=== PATIENT | male | born 1950 | race Caucasian/White ===

== ENCOUNTER 2022-05-01 21:57 | Emergency (ER) | payer MEDICARE, BC ==
[~2022-05-01] VITALS: Ht 180.3 cm; Wt 88.5 kg
[~2022-05-01 21:57] MED LIST: AFRIN30 ML NAS; ASPIRIN EC81 MG PO; COQ1050 MG PO; FOLGARD TABLET1 EAC1 PO; MEDI PO
[2022-05-01] MEDS ORDERED: CIPROFLOXACIN500 MG PO (22:25)
[2022-05-01] MEDS ORDERED: MELOXICAM15 MG PO (22:26)
[2022-05-01] MEDS ORDERED: METRONIDAZOLE500 MG PO (22:26)
[2022-05-01] MEDS ORDERED: PROPRANOLOL HCL20 MG PO (22:26)
[2022-05-01] MEDS ORDERED: FLUOCINONIDE15 GM TOP (22:27)
[2022-05-01] MEDS ORDERED: PRIMIDONE50 MG PO (22:27)
[2022-05-02] MEDS ORDERED: ONDANSETRON ODT4 MG PO (00:34)
== END 2022-05-02 01:26 | disposition home or self-care (01) ==
LOC: ED 21:57
DX: E86.0 Dehydration (principal); R11.2 Nausea with vomiting, unspecified; N39.0 Urinary tract infection, site not specified; M19.90 Unspecified osteoarthritis, unspecified site; Z88.5 Allergy status to narcotic agent; Z88.8 Allergy status to other drugs, medicaments and biological substances; Z79.899 Other long term (current) drug therapy
CPT/HCPCS: 36415; 80053; 81001; 83690; 85025; 96361; 96365; 96375; 99284-25; J0696; J1885; J2405; J7121

== ENCOUNTER 2022-05-04 10:17 | Emergency (ER) | payer MEDICARE, BC ==
[~2022-05-04] VITALS: Ht 180.3 cm; Wt 84.5 kg
[~2022-05-04 10:17] MED LIST changes: +CIPROFLOXACIN500 MG PO; +FLUOCINONIDE15 GM TOP; +MELOXICAM15 MG PO; +METRONIDAZOLE500 MG PO; +ONDANSETRON ODT4 MG PO; +PRIMIDONE50 MG PO; +PROPRANOLOL HCL20 MG PO
--- OUTSIDE RECORDS SUMMARY | 2022-05-04 10:26 | XMS ---
PreManage Notification: ALVARO FREDERICK Security Huc Ob Events No recent Security Events currently on file CRITERIA MET - [facility] - 2 Visits in 30 Days CARE PROVIDERS There are no care providers on record at this time. Ellis has no Care Guidelines for this patient. Radames VISIT COUNT (12 MO.) [facility] T[facility] 2 NOTE: Visits indicate total known visits. ED/C VISIT TRACKING (12 MO.) [facility] 10[facility] COMPLAINT: - VOMITING 05/01/2022 21:59 [facility] [place] TYPE: Emergency COMPLAINT: - UTI FOR 12 DAYS AMD N/V INPATIENT VISIT TRACKING (12 MO.) No inpatient visits to display in this time frame [email or web address]
[2022-05-04] MEDS ORDERED: REGLAN10 MG PO (17:23)
[2022-05-04] MEDS ORDERED: CEPHALEXIN500 M1 PO (17:23)
== END 2022-05-04 17:38 | disposition home or self-care (01) ==
LOC: ED 10:17
DX: N12 Tubulo-interstitial nephritis, not specified as acute or chronic (principal); Z88.5 Allergy status to narcotic agent; Z88.6 Allergy status to analgesic agent; Z79.899 Other long term (current) drug therapy
CPT/HCPCS: 36415; 74177; 80053; 81001; 83690; 85025; 96361; 96375; 99284-25; J0696; J1200; J2765; J7030; Q9967

== ENCOUNTER 2022-05-06 21:29 | Inpatient (IN) | payer MEDICARE, BC ==
[~2022-05-06] VITALS: Ht 180.3 cm; Wt 80.5 kg
[~2022-05-06 21:29] MED LIST changes: +CEPHALEXIN500 M1 PO; -FOLGARD TABLET1 EAC1 PO; -MEDI PO; +MULTI VITAMIN1 EACH PO; +REGLAN10 MG PO; +VITAMIN D350 MCG PO
--- OUTSIDE RECORDS SUMMARY | 2022-05-06 21:36 | XMS ---
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 - 2 Visits in 30 Days CARE PROVIDERS There are no care providers on record at this time. Ellis has no Care Guidelines for this patient. Radames [facility] (12 MO.) [facility] T[facility] 3 NOTE: Visits indicate total known visits. ED/C VISIT TRACKING (12 MO.) 05[facility]06[facility]22 21[facility] COMPLAINT: - RIGHT SIDE ABD PAIN 05/04/2022 10:19 [facility] [place] TYPE: Emergency COMPLAINT: - VOMITING 05/01/2022 21:59 [facility] [place] TYPE: Emergency COMPLAINT: - UTI FOR 12 DAYS AMD N/V DIAGNOSES: - Nausea with vomiting, unspecified - Unspecified osteoarthritis, unspecified site - Allergy status to narcotic agent - Unspecified abdominal pain - Dehydration - Other terminologist (current) drug therapy - Allergy status to other drugs, medicaments and biological substances - Urinary tract infection, site not specified INPATIENT VISIT TRACKING (12 MO.) No inpatient visits to display in this time frame [email or web address]
--- NOTE | 2022-05-07 04:36 | NUR ---
pt arrived from ER via wheelchair. Pt alert and oriented independent. resp even et unlabored. able to make needs known. pt has no skin issues noted. pt lying in bed resting quietly at this time. no n/v noted at this time. no complaints of pain or distress at this time. will continue to monitor.
--- NOTE | 2022-05-07 07:06 | NUR ---
REPORT RECEIVED FROM OCTAVIO ARVIZU. PT RESTING IN BED WIHT EYES CLOSED. MILD SNORNING NOTED, RESPIRATIONS OTHERWISE EVEN AND UNLABORED. BED RAILS UP. CALL LIGHT WITHIN REACH. HEAD OF BED AT 15 DEGREES. PT ALLOWED TO REST.
--- NOTE | 2022-05-07 09:05 | NUR ---
MORNING ASSESSMENT AND MEDICATION DUE. PT RESTING IN BED, WITH HEAD OF BED AT 21 DEGREES. PT TAKING SIPS OF CLEAR FLUIDS. PT DENIES PAIN AND NAUSEA AT THIS TIME. PT REPORTS HIS NAUSEA USUALLY "GOES AWAY IN THE MORNING AND RAMPS UP IN THE AFTERNOON." PT ALERT AND ORIENTED TO ALL. LUNG SOUNDS CLEAR. HEART TONES REGULAR. ABDOMEN SOFT AND NON TENDER AT THIS TIME. PT INDEPENDANT IN ROOM, STEADY ON FEET, BMAT LEVEL 4. PT DENIES ANY FEELINGS OF ABDOMINAL DISTENTION. BOWEL TONES ACTIVE. 200ML DARK YELLOW URINE REMOVED FROM BEDSIDE URINAL. NO SKIN WOUNDS OR ABNORMALITIES NOTED OTHER THAN OLD SCARS TO ABDOMEN AND KNEES FROM PAST SURGERIES. MINOR TREMORS NOTED TO HANDS WHICH PT STATES HE HAS "HAD ALL MY LIFE." PT REPORTS HE HAS BEEN TAKING HIS TREMOR MEDICAITON "WHEN I CAN." BUT HAS HAD TROUBLE KEEPING MEDICATION DOWN. MEDICATIONS GIVEN. NO ADDITIONAL NEEDS AT THIS TIME. CALL LIGHT WITHIN REACH. BED RAILS UP.
--- NOTE | 2022-05-07 10:02 | NUR ---
THIS RN TO ROOM TO CHECK ON PT. IV ABX COMPLETE. PTS CONTINIOUS IV FLUIDS RESUMED. PT CONTINUES TO DENY PAIN AND NAUSEA. NO ADDITIONAL REQUESTS OR COMPLAINTS AT THIS TIME. PT WAS ABLE TO KEEP DOWN ~200ML IF CLEAR LIQUID BREAKFAST. CALL LIGHT WITHIN REACH. BED RAILS UP.
--- NOTE | 2022-05-07 10:41 | NUR ---
MED REC COMPLETE
--- NOTE | 2022-05-07 12:12 | NUR ---
PT ALERT, ORIENTED AND SITTING IN CHAIR WITH VOID BAG HANDY. PT JUST RETURNED FROM A TRIP TO [facility] AND FELT SICK ON RETURN TRIP. PT PLEASANT, HAS NOT DEALT WITH THIS PREVIOUS. HAD GOOD VISIT, PT REQUESTED PRAYER.
--- NOTE | 2022-05-07 12:17 | NUR ---
MEDICATION DUE. PT UP TO CHAIR FOR LUNCH. VISITING WITH HIS ROSE. ROSE UPDATED ON PT STATUS AND PLAN OF CARE AND STATES HER QUESTIONS HAVE BEEN ANSWERED. MEDICATION GIVEN. LUNCH DELIVERED TO PT. PT DENIES PAIN AND NAUSEA AT THIS TIME. PT REQUESTS ORAL CARE, SUPPLIES PROVIDED. NO ADDITIONAL NEEDS AT THIS TIME. CALL LIGHT WIHTIN REACH. PT REMAINS UP TO CHAIR.
--- NOTE | 2022-05-07 13:10 | NUR ---
Spoke with pt and his . He has two weeks of trips to the ER and walk in clinic for kidney infection. Pt states he is usually healthy and does not use any DME. They have multiple pieces of DME, but do not use. Pt plans on dc to home when IV antibiotics are completed and pt is medically cleared. Both deny needs, but would like help establishing care with Dr. Chris Low at [facility]. states they have been working on this for a while, but have not been able to establish care. I will call [facility].
--- NOTE | 2022-05-07 13:14 | NUR ---
THIS RN TO ROOM TO CHECK ON PT. PT REMAINS UP TO CHAIR. ABLE TO TOLEARTE ~50% OF REGULAR DIET LUNCH. PT CONTINUES TO DENY PAIN AND NAUSEA. NO ADDITIONAL REQUESTS OR COMPLAINTS. CALL LIGHT WITHIN REACH. PTS REMAINS AT BEDSIDE WITH PT.
--- NOTE | 2022-05-07 14:10 | NUR ---
AFTERNOON ASSESSMENT DUE. PT RESTING IN BED, SUPINE POSITION WITH HEAD OF BED ELEVATED TO 15 DEGREES. PT CONTINUES TO DENY PAIN AND NAUSEA. PT ALERT AND ORIENTED TO ALL. LUNG SOUNDS CLEAR. HEART TONES REGULAR. ABDOMEN SOFT AND NON TENDER. BOWEL TONES ACTIVE. CMS INTACT. PT TOELRATING REGULAR DIET SO FAR THIS SHIFT, PLACING FOOD ORDERS FOR DINNER AND BREAKFAST. PT DENIES PAIN IN FLANKS WITH PALPATION. TREMORS CONTINUE IN HANDS, MINOR AND PER BASELINE PER PT. PT DENIES ADDITONAL REQUESTS OR COMPLAINTS. EDUCATION DONE WITH PT REGARDING NEED TO MEASURE VOIDS, PT VERBALIZES UNDERSTANDING. NO ADDITIONAL NEEDS AT THIS TIME. CALL LIGHT WITHIN REACH. BED RAILS UP.
--- NOTE | 2022-05-07 14:42 | NUR ---
PATIENT BACK IN BED AFTER LUNCH.
--- NOTE | 2022-05-07 15:10 | NUR ---
THIS RN TO ROOM TO CHECK ON PT. PT RESTING IN BED ON BACK, AWAKEN AND ALERT. PT ASSITED WITH ORGANIZING POSSESSIONS. PT UP INDEPENDANTLY FOR ORAL CARE. PT DENIES PAIN AND NAUSEA. NO ADDITIONAL REQUESTS OR COMPLAINTS. CALL LIGHT WIHTIN REACH. BED RAILS UP.
--- NOTE | 2022-05-07 15:53 | NUR ---
PT HERE FOR PYELONEPHRITIS. PT INDEPENDANT IN ROOM THIS SHIFT, STEADY ON FEET AND UP TO CHAIR FOR MEALS. PT ADVANCED FROM CLEAR LIQUID DIET TO REGULAR DIET THIS SHIFT AND IS TOLERATING REGULAR DIET SO FAR THIS SHIFT. PT DENIES PAIN AND NAUSEA SO FAR THIS SHIFT. DENIES FLANK PAIN AND VOIDING QUANITTY SUFFICIENT ALTHOUGH LESS THAN EXPECTED GIVEN IV HYDRATION. ABDOMEN SOFT AND NON TENDER WITH ACTIVE BOWEL TONES. IV ABX GIVEN. FAMILY TO BEDSIDE TO VISIT THIS SHIFT. PT USES CALL LIGHT AND MAKES NEEDS KNOWN.
--- NOTE | 2022-05-07 16:05 | NUR ---
Called and spoke with medical receptionist medical assistant and was transfered to project controls scheduler. Message left as they were not available. Called and left a message with Yuki Rodriguez at [facility] and asked if she could check about this pt establishing care. Called and was able to reach Barbie, she will check with the provider.
--- NOTE | 2022-05-07 16:10 | NUR ---
HOURLY ROUNDING: PT CONTINUES RESTING IN BED. AMBUALTION OFFERED, PT DECLINES. PT REPORTS 1-2/10 HEADACHE. PT DECLINES TYLENOL COOL CLOTH PROVIDED WHICH PT REPORTS HELPS. PT DENIES ANY OTHER PAIN. PT DENIES NAUSEA. NO ADDITIONAL REQUESTS OR COMPALINTS. CALL LIGHT WITHIN REACH. BED RAILS UP.
--- NOTE | 2022-05-07 16:30 | NUR ---
Notified by PFM I should attempt to schedule with the [facility]ysician clinic as they will not be able to see this pt until after June.
--- NOTE | 2022-05-07 17:17 | NUR ---
DINNER DELIVERED TO PT. PT SITTING ON EDGE OF BED FOR DINER. PT REPORTS HE CANNOT HAVE [place], COOKIE REPLACED. PT DENIES PAIN AND NAUSEA. NO ADDITIONAL REQUESTS OR COMPLAINTS. CALL LIGHT WIHTIN REACH. PTS AT BEDSIDE.
--- NOTE | 2022-05-07 17:24 | NUR ---
Called and spoke with the [facility] and they state Brunilda Monahan MD is also full. They will check with the other providers for a Hospital appt and an appt to establish care and then call the pt. Called pts and update.
--- NOTE | 2022-05-07 18:39 | NUR ---
THIS RN TO ROOM TO CHECK ON PT. PT BACK IN BED, HEAD OF BED ELEVATED TO 20 DEGREES. PT CONTINUES TO DENY PAIN AND NAUSEA STATING HE IS VERY HAPPY WITH THIS "IT USUALLY COMES BACK ABOUT THIS TIME." PT DENIES ADDITONAL REQUESTS OR COMPLAINTS. CALL LIGHT WIHTIN REACH. BED RAILS UP. ICE WATER REFILLED.
--- NOTE | 2022-05-08 07:07 | NUR ---
REPORT RECEIVED FROM OCTAVIO ARVIZU. PT RESTING IN BED ON LEFT SIDE WITH EYES CLOSED. RESPIRATIONS EVEN AND UNLABORED. BED RAILS UP. CALL LIGHT WITHIN REACH. PT ALLOWED TO REST.
--- NOTE | 2022-05-08 09:10 | NUR ---
MORNING ASSESSMENT AND MEDICATION DUE. PT RESTING IN BED, FINISHED WITH BREAKFAST. PT ABLE TO EAT ~ 75% OF BREAKFAST. PT DENIES NAUSEA BUT REPORTS 3/10 HEADACHE AND 3/10 BODY ACHES. PT REPORTS "LOWER BACK PAIN" LAST NIGHT. PT REPORTS HE NORMALLY TAKES ADVIL AT HOME FOR HEADACHES AND BACK PAIN. PT REPORTS TAKING ADVIL "ABOUT ONCE A WEEK." PT REMAINS ALERT AND OREINTED TO ALL. PT REMAIN BMAT LEVEL 4, STEADY ON FEET AND INDEPENDANT IN THE ROOM. LUNG SOUNDS CLEAR. HEART TONES REGULAR. IV FLUIDS NOTED TO HAVE BEEN STOPPED DURING THE NIGHT. DR. HUANG TO BEDSIDE FOR ROUNDS. DR HUANG UPDATED ON PT STATUS AND STATES HE WILL REORDER IV FLUIDS AND NEW PAIN MEDICATIONS. ABDOEMN SOFT AND NON TENDER. BOWEL TONES ACTIVE. PT DENIES FLANK PAIN WITH PALPATION. SNACK PROVIDED PER PT REQUEST. PT DENIES ADDITIONAL REQUESTS OR COMPLAINTS AT THIS TIME. CALL LIGHT WITHIN REACH. BED RAILS UP.
--- NOTE | 2022-05-08 10:37 | NUR ---
PUMP ALARMING, INFUSION AND FLUSH COMPELTE. IV FLUSHED AND SALINE LOCKED AT THIS TIME FOR SHOWER. ALCOHOL CAP APPLIED. PT REPORTS HEADACHE AND BODY ACHES REMAIN "ABOUT THE SAME." PT DECLINE ADDITIONAL MEDICAITON AT THIS TIME STATING HE WOULD LIKE TO "TAKE A SHOWER FIRST." SOCIAL SECURITY ASSESSOR TO BEDSIDE TO ASSIST PT WITH SETTIN UP THE SHOWER. PT INDEPENDANT IN SHOWER. NO ADDITOINAL NEEDS AT THIS TIME. PT DEMONSTRATES USE OF CALL LIGHT.
--- NOTE | 2022-05-08 11:35 | NUR ---
PT FINISHED WITH SHOWER. PT REPORTS FEELING "BETTER." HEADACHE REMAINS AT A /. MD CONSUTLED AND NEW ORDERS PLACED. MEDICATION GIVEN (SEE MAR). IV FLUIDS STARTED. PT UP TO CHAIR, READING NEWS ARTICLES ON THE COMPUTER. PT REPORTS MILD NAUSEA THAT "HAS BEEN THAT WAY ALL NIGHT." PT DECLINES NAUSEA MEDICAITON AT THIS TIME. NO ADDITIONAL REQUESTS OR COMPLAINTS. CALL LIGHT LETITIA TENA.
--- NOTE | 2022-05-08 12:30 | NUR ---
LUNCH DELIVERED TO PT. PT REMAINS UP TO CHAIR FOR LUNCH. PT REPORTS HEADACHE HAS IMPROVED NOW AT 1/10 AND "TOLERABLE." PT DENIES NEED FOR ADDITIONAL PAIN MEDICATION. PT REPORTS MILD NAUSEA THAT IS "NOTHING THAT BAD." PT DENIES NEED FOR NAUSEA MEDICATIONS. PTS , ROSE, AT BEDSIDE, UPDATED ON PLAN OF CARE. PT DENIES ANY ADDITIONAL REQUESTS OR COMPLAINTS. ICE WATER REFILLED. CALL LIGHT WITHIN REACH. BED RAILS UP.
--- NOTE | 2022-05-08 13:03 | NUR ---
NOTED IN DR HUANGS PROGRESS NOTE THAT PT CAN HAVE ZOFRAN IF NEEDED FOR NAS[place]A. NO ORDER PRESENT. DR HUANG CONSUTLED AND STATES TO PLACE ORDER. ORDER ENTERED, REPEAT BACK PERFORMED.
--- NOTE | 2022-05-08 14:36 | NUR ---
AFTERNOON ASSESSMENT DUE. PT UP TO CHAIR. FINISHED WITH LUNCH AND VISITING WITH HIS . PT REPORTS HEADACHE AND BODY ACHES HAVE RESOLVED. PT ALSO REPORTS NAUSEA HAS RESOLVED. PT ALERT AND ORIENTED TO ALL. HEART TONES REGULAR. LUNG SOUNDS CLEAR. ABDOMEN SOFT AND NON TENDER AND BOWEL TONES ACTIVE IN ALL QUADRAINGS. PT REPORTS FEELING CONSITPATED NOW AND REQUESTS MEDICATIONS. NURSE INITIATED ORDER PLACED, SEE MAR FOR MEDICATION GIVEN. PT ENCORUAGED TO DRINK FLUIDS.PT DENIES FLANK PAIN EVEN WITH PLAPATION. PT TOLEARTING REGUALR DIET WITH GOOD APPITITE. PT DENIES ADDITIONAL REQUESTS OR COMPLAINTS. PT REMAINS UP TO CHAIR, WORKING ON COMPUTER. CALL LIGHT WITHIN REACH.
--- NOTE | 2022-05-08 15:50 | NUR ---
THIS RN TO ROOM TO CHECK ON PT. PT REMAINS UP TO CHAIR. WATCHING TV. PT DENIES PAIN AND NAUSEA AND REPORTS HE IS CLOSE TO A BOWEL MOVEMENT. PT DENIES REQUESTS OR COMPLAINTS. CALL LIGHT WITHIN REACH.
--- NOTE | 2022-05-08 17:08 | NUR ---
DINNER DELIVERED TO PT. PT REMAINS UP TO CHAIR. PT CONTINUES TO DENY PAIN AND NAUSEA. PT REPORTS FEELING "MORE MYSELF" THIS EVENING. PT DENEIS REQUESTS OR COMPLAINTS. REPORTS HE STILL HAS NOT HAD A BOWEL MOVEMENT. PT ENCORUAGED TO TRY ADDITIONAL MEDICATIN THIS EVENING IF HE CONTINUES TO BE CONCERNED ABOUT BOWEL MOVEMENTS. NO ADDITIONAL REQUESTS OR COMPLAINTS. CALL LIGHT WITHIN REACH.
--- NOTE | 2022-05-08 17:23 | NUR ---
PT HERE FOR PYELONEPHRITIS. PT INDEPENDANT IN ROOM THIS SHIFT, STEADY ON FEET AND UP TO CHAIR FOR MEALS. PT CONTINUES TO TOLEARTE REGULAR DIET WITH GOOD INTAKE. PT REPORTED A ROUGH NIGHT WITH HEADACHES, BACK PAIN AND MILD NAUSEA. RESOLVED WITH MEDICATION THIS SHIFT. PT DENIES FLANK PAIN. VOIDING QUANITTY SUFFICIENT ALTHOUGH LESS THAN EXPECTED GIVEN IV HYDRATION. ABDOMEN SOFT AND NON TENDER WITH ACTIVE BOWEL TONES. PT REPORTS FEELING MILDY CONSTIPATED THIS SHIFT, NIO BOWEL MEDICATIONS ORDERED AND GIVEN. FAMILY TO BEDSIDE TO VISIT THIS SHIFT. IV ABX GIVEN. PT USES CALL LIGHT AND MAKES NEEDS KNOWN.
--- NOTE | 2022-05-08 18:48 | NUR ---
hourly rounding: PT REMAINS UP TO CHAIR. PT DENIES PAIN AND NAUSEA AND REPORTS HE HAD " A GOOD DAY." STAND BY ASSIST UP TO RESTROOM. PT VOIDS 200ML DARK YELLOW URINE. STAND BY ASSIST BACK TO BED. PT CONTINUES TO DENY PAIN AND NAUSEA. NO ADDITIONAL REQUESTS OR COPMLAITNS. CALL LIGHT WIHTIN REACH. BED RAILS UP.
--- NOTE | 2022-05-08 19:00 | NUR ---
REPORT RECEIVED FROM OCTAVIO BEAUCHAMP. PT LAYING IN BED WITH EYES OPEN AND RESPONDS WHEN ADDRESSED. RR EVEN AND UNLABORED. PT REPORTS NO NEEDS AT THIS TIME. CALL LIGHT IN REACH.
--- NOTE | 2022-05-08 20:38 | NUR ---
IN TO ANSWER CALL LIGHT. IV PUMP ALARMING, RESOLVED. PT AMBULATES TO RESTROOM AND BACK TO BED WITH STEADY GAIT. MEDICATIONS ADMINISTERED, SEE MAR. PT TAKES PO MEDICATIONS WITH NO ISSUES. IV INFUSING WNL. VITALS AND I&Os COMPLETE. ASSESSMENT COMPLETE. PT REPORTS "NO PAIN" AT THIS TIME. LUNG SOUNDS CLEAR. BOWEL TONES ACTIVE. PT REPORTS NO OTHER NEEDS AT THIS TIME. CALL LIGHT IN REACH.
--- NOTE | 2022-05-09 03:38 | NUR ---
IN TO ROUND ON PT. PT LAYING IN BED ON LEFT SIDE. PT TURNS OVER AND ADDRESSES THIS RN WHEN ENTERING ROOM. URINAL EMPTIED. PT REPORTS NO BM. PT REPORTS NO PAIN AT THIS TIME. PT REPORTING NO NEEDS. CALL LIGHT IN REACH. IV INFUSING WNL.
--- NOTE | 2022-05-09 03:45 | NUR ---
IN TO ANSWER CALL LIGHT. IV PUMP ALARMING, RESOLVED. PT REPORTS NO OTHER NEEDS AT THIS TIME. CALL LIGHT IN REACH.
--- NOTE | 2022-05-09 05:17 | NUR ---
IN TO ROUND ON PT. LAB IN ROOM. VITALS AND I&Os COMPLETE. ASSESSMENT COMPLETE. PT STATES "JUST ABDOMINAL DISCOMFORT" WHEN ASKED ABOUT PAIN. PT DENIES PAIN MEDICATION WHEN OFFERED. LUNG SOUNDS CLEAR. BOWEL TONES ACTIVE. IV INFUSING WNL. PT DENIES ANY NEEDS AT THIS TIME. CALL LIGHT IN REACH.
--- NOTE | 2022-05-09 07:08 | NUR ---
REPORT RECEIVED FROM OCTAVIO LOTT. PT RESTING IN BED. PT REPORTS 04/27 HEADACHE, PT DENIES NEED FOR PAIN MEDICATION. PT DENIES NAUSEA. PT REPORTS HE HAD A "PRETTY GOOD NIGHT." NO ADDITONAL REQUESTS OR COMPLAINTS. CALL LIGHT WITHIN REACH. BED RAILSUP.
--- NOTE | 2022-05-09 08:14 | NUR ---
PT AWAKE IN ROOM AND LAYING IN BED. WHITE BOARD UPDATED. CALL LIGHT IN REACH. URINAL EMPTIED. NO FURTHER NEEDS AT THIS TIME.
--- NOTE | 2022-05-09 09:09 | NUR ---
MORNING ASSESSMENT AND MEDICAITON DUE. PT RESTING IN BED AFTER EATING BREAKFAST. PT REPORTS 1/10 HEADACHE PAIN AND DENIES NEED FOR PAIN MEDICATION AT THIS TIME. PT REPORTS "DISCOMFORT" IN HIS ABDOMEN "BECUASE I NEED TO USE THE RESTROOM." PT ENCOURAGED TO GET UP TO RESTROOM. PT DECLINES SENNA REPORTING HE DOES NOT NEED ANYTHING ELSE FOR ELEMINATION. ABDOMEN SOFT AND NON TENDER. BOWEL TONES ACTIVE. PT ALERT AND OREINTED TO ALL. HEART TONES REGULAR, LUNG SOUNDS CLEAR. PT DENIES FLANK PAIN EVEN WITH PALPATION. PT TOLERATING PO INTAKE WELL. URINE OUTPUT HAS PICKED UP A LOT NOW WITH >600ML EVERY FOUR HOURS. URINE NOW LIGHT YELLOW AND CLEAR. PT REPORTS HE FEELS READY FOR DISHARGE HOME. PT DENIES ADDITIONAL REQUETS OR COMPLAINTS. ICE WATER REFILLED. CALL LIGHT LETITIA TENA.
--- NOTE | 2022-05-09 10:19 | NUR ---
THIS RN TO ROOM TO CHECK ON PT. PT UP TO RESTROOM INDEPENDANTLY. 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 ADDITONAL 250ML CLEAR LIGHT YELLOW URINE REMOVED FROM URINAL. PT PERFORMS MORNING CARES INCLUDING SHAVING AND ORAL CARE INDEPENDANTLY. PT DENIES PAIN AND NAUSEA AND STATES ABDOMINAL DISCOMFORT HAS RESOLVED AFTER BOWEL MOVEMENT. NO ADDITIONAL REQUESTS OR COMPLAINTS. CALL LIGHT WITHIN REACH. BED RAILS UP.
--- NOTE | 2022-05-09 10:25 | NUR ---
THIS RN TO ROOM WITH DR. HUANG FOR ROUNDS. PT UP DATED ON PLAN OF CARE AND PLAN FOR DISCHARGE. PT VERBALIZES UNDERSTANDING AND STATES HIS QUESTIONS HAVE BEEN ASNWERED. PT DENIES ADDITONAL REQUESTS OR COMPLAINTS. CALL LIGHT WITHIN REACH. IV CONTINUES INFUSING MAGNESIUM AT THIS TIME. WILL SALINE LOCK FOR DISCHARGE WHEN COMPLETE.
[2022-05-09] MEDS ORDERED: ONDANSETRON4 MG/2 M1 IV (10:46)
[2022-05-09] MEDS ORDERED: CEFDINIR300 MG PO (10:47)
--- NOTE | 2022-05-09 11:11 | NUR ---
CALL RECEIVED FROM [facility], SPOKE WITH LONNY. NOTED THAT ZOFRAN WAS ORDERED IV INSTEAD OF ODT. DR HUANG STATES TO ADJUST ORDER TO ODT. ORDERS ADJUSTED BY LONNY, PHARMACIST.
--- NOTE | 2022-05-09 11:20 | NUR ---
IV MAGNESIUM INFUSION COMPLETE. IV FLUSHED, SALINE LOCKED AND DC'D PER PROTOCOL. GAUZE AND COBAN APPLIED. PT DENIES PAIN AND NAUSEA. PT UP TO GET DRESSED, INDEPENDANT IN THE ROOM. LUNCH ORDER ADJUSTED FOR PT. NO ADDITIONAL REQUESTS OR COMPLAINTS. CALL LIGHT WITHIN REACH.
--- NOTE | 2022-05-09 12:10 | NUR ---
PT READY FOR DISCHARGE. VITAL SIGNS STABLE. PT CONTINEUS TO DENY PAIN AND NAUSEA. DISCHARGE INSTRUCTIONS REVIEWED WITH PT, PTS , AND PTS SON. PT AND FAMILY VERBALIZE UNDERSTANDING OF INSTRUCTIONS, MEDICATION, FOLLOW UP AND HYDRATION. PT AND FAMILY STATE THEIR QUESTIONS HAVE BEEN ANSWERED. LUNCH DELIVERED TO PT. PT REPROTS HE WILL CALL WHEN READY TO GO. NO ADDITIONAL REQUESTS OR COMPLAINTS. CALL LIGHT WITHIN REACH.
--- NOTE | 2022-05-09 12:38 | NUR ---
PT CALL LIGHT ON. PT REPORTS HE IS READY FOR DISCHRAGE. PT TRANSFERES SELF TO WHEELCHAIR AND IS WHEELED FROM MED/SURG WITH FAMILY. PT DENIES ADDITIONAL REQUESTS OR CONCERNS. ALL BELONGINGS WIHT PT.
== END 2022-05-09 12:40 | disposition home or self-care (01) | DRG 690 ==
LOC: ED 21:29 → MS 21:31
PROVIDERS: ADMIT Family Medicine; ATTEND Family Medicine
DX: N13.6 Pyonephrosis (principal); R11.2 Nausea with vomiting, unspecified; Z20.822 Contact with and (suspected) exposure to COVID-19; M19.90 Unspecified osteoarthritis, unspecified site; Z85.46 Personal history of malignant neoplasm of prostate; Z96.659 Presence of unspecified artificial knee joint; Z88.6 Allergy status to analgesic agent; Z88.8 Allergy status to other drugs, medicaments and biological substances; Z90.49 Acquired absence of other specified parts of digestive tract; Z90.79 Acquired absence of other genital organ(s); Z98.890 Other specified postprocedural states; Z79.899 Other long term (current) drug therapy
CPT/HCPCS: 36415; 74176; 74177; 80053; 81001; 83735; 85025; 87088; 87502; 96361; 96375; 99285-25; A9270; C9803; J0696; J1650; J1790; J1885; J3475; J7030; J7121; Q9967; U0003

== ENCOUNTER 2022-06-08 06:30 | Day surgery (SDC) | payer MEDICARE, BC ==
[~2022-06-08] VITALS: Ht 180.3 cm; Wt 90.3 kg
[~2022-06-08 06:30] MED LIST changes: +CEFDINIR300 MG PO; +CIALIS10 MG; +IMITREX50 MG PO; +ONDANSETRON4 MG/2 M1 IV
[2022-06-08] MEDS ORDERED: MELATONIN1 MG PO (06:54)
--- NOTE | 2022-06-08 09:06 | NUR ---
06/08/22 09 Hoda Garcia 0815 PT ARRIVED IN PACU SLEEPY. ABD SOFT. 0830 RESTING. REU. 0845 SITTING AT SIDE OF BED SIPPING ON JUICE. DC INSTRUCTIONS GIVEN. ALL QUESTIONS ANSWERED.
--- NOTE | 2022-06-08 10:32 | OR ---
[facility] [address] [place], [place] [address] Signed DATE OF OPERATION: 06/08/2022 SURGEON: Huma Araujo MD PREOPERATIVE DIAGNOSES: 1. Anemia. 2. Meloxicam p.o. daily. 3. Internal hemorrhoids. 4. Radiation proctitis. 5. Hyperplastic colonic polyps. POSTOPERATIVE DIAGNOSES: 1. Small hiatal hernia. 2. Duodenitis (bulb). 3. Slight distal esophageal/GE junction stricture. 4. Minimal distal radiation proctitis. 5. Minimal sigmoid diverticulosis. 6. Moderate internal hemorrhoids. PROCEDURES: 1. EGD with CLOtest and biopsies of the pyloric bulb, antrum and GE junction. 2. Colonoscopy without biopsy. ESTIMATED BLOOD LOSS: None. INDICATIONS: Luis is a 71-year-old gentleman, asked to see me for both upper and lower endoscopy. He has mild anemia. He had been through a colonoscopy in 2006 at the age of 55 [address] Macario. He had one small hyperplastic polyp removed. I helped Luis in 2014 at the age of 64 for followup colonoscopy. Again, he had one small hyperplastic polyp removed. He does have internal hemorrhoids. He has a little radiation proctitis from the prostate cancer. He had done well with Versed and fentanyl. We asked him to follow up in 10 years for repeat screening colonoscopy. He later underwent robotic assisted laparoscopic prostatectomy in 2009 for his prostate cancer. When his PSA started to rise after the prostate surgery, he had pelvic radiation. He said he has not seen a urologist since that time. He sees a little blood in the urine once about every month or so. He said he has to take meloxicam every day for his arthritis. He does experience nausea and vomiting with oxycodone and hydrocodone. He had done well with the fentanyl. He declined any antiemetics today. There is mention of gastric outlet Electronically Signed By: HUMA ARAUJO MD 06/08/22 1032 PATIENT NAME: LUIS FREDERICK OPERATIVE REPORT DATE OF : 48 REPORT #: [id number] PHYSICIAN: HUMA ARAUJO MD PCP: CORI DIEZ MD REPORT IS CONFIDENTIAL AND NOT TO BE RELEASED WITHOUT AUTHORIZATION [facility] [address] [place] [place], [place] [address] Signed obstruction in his progress notes. I have reviewed that with him. He said he does not have any of those symptoms. He has no family history of colon cancer or polyps. In the office, I gave him a pamphlet on both upper and lower endoscopy. We had reviewed the nature of the two tests. There is risk including, but not limited to gas bloating, crampy abdominal pain, bleeding, perforation requiring surgery, and missed diagnosis. He understands the need for IV conscious sedation. He had expressed understanding and wished to proceed. PROCEDURE NOTE: Luis was taken into our endoscopy suite and placed in the supine semi-recumbent position. The posterior oropharynx was anesthetized with Hurricaine spray. A bite block was utilized for the case. He was given a total of 125 mcg of fentanyl and 7 mg of Versed to cover the case. The adult gastroscope had been introduced and advanced under direct visualization of the camera. I felt some resistance right at the GE junction as the camera went through. I then passed down to the bottom of the antrum. It took me just a minute to get through the antrum and then out into the duodenum. The duodenum was unremarkable. The pyloric bulb showed some inflammatory changes consistent with duodenitis. We took a biopsy of this area. Overall, the stomach was not particularly concerning. We took a biopsy of the antrum for pathologic review as well as CLOtest. Upon retroflexion of the scope, it looks like he has just a tiny hiatal hernia. The GE junction measured at about 35 cm. He did have a little irritation and blood there around the Z-line from the gastroscope passing through. There was no Dukes's mucosa. We went and took a biopsy along the edge of the Z-line. There was no distal esophagitis. The middle and upper esophagus were unremarkable. After this, the gas was suctioned out and the gastroscope removed. Luis tolerated his upper endoscopy quite well. Luis was then rotated into the left lateral decubitus position. He was maintained on IV sedation with Versed and fentanyl. A digital rectal exam was performed. He has no external hemorrhoids. He had good sphincter tone. His prostate is absent. There are no nodules that I could palpate. The adult colonoscope was introduced and advanced under direct visualization of the camera. It took a little extra sedation passing Luis into the supine position to get the scope into the cecum itself. His prep was quite excellent. Luis has lost quite a bit of weight over the last three years and therefore he has no fat between his bowel loops. The scope was then slowly withdrawn. We took pictures throughout for photodocumentation. We could easily see the cecum and the ileocecal valve. We saw just a few diverticula in the sigmoid colon. They were minimal to moderate in size, few in number, and scattered about. Down in the rectum, it was unremarkable except for the radiation proctitis just above the anal canal. We had retroflexed the scope and we can see his moderate-sized internal hemorrhoid columns. After this, the gas was suctioned out and the colonoscope removed. Luis tolerated the procedure quite well. Electronically Signed By: HUMA ARAUJO MD 06/08/22 1032 PATIENT NAME: LUIS FREDERICK OPERATIVE REPORT DATE OF : 48 REPORT #: [id number] PHYSICIAN: HUMA ARAUJO MD PCP: CORI DIEZ MD REPORT IS CONFIDENTIAL AND NOT TO BE RELEASED WITHOUT AUTHORIZATION [facility] [address] [facility], [place] [address] Signed RECOMMENDATIONS: I will see Luis back in my office in 7 to 14 days to review his results. He can consider resuming the meloxicam in one week. He probably needs to be on an H2 ever or proton-pump inhibitor. Huma Araujo MD [facility] /[id number] cc: MD Dr. Brunilda Jha Copies: HUMA ARAUJO MD ~ Electronically Signed By: HUMA ARAUJO MD 06/08/22 1032 PATIENT NAME: LUIS FREDERICK OPERATIVE REPORT DATE OF : 48 REPORT #: [id number] PHYSICIAN: HUMA ARAUJO MD PCP: CORI DIEZ MD REPORT IS CONFIDENTIAL AND NOT TO BE RELEASED WITHOUT AUTHORIZATION
== END 2022-06-08 09:11 | disposition home or self-care (01) ==
LOC: DS 06:30 → OPS 06:30 → DS 07:30 → OPS 09:11
PROVIDERS: ATTEND Colon & Rectal Surgery
PROC: 0DJD8ZZ Inspection of Lower Intestinal Tract, Via Natural or Artificial Opening Endoscopic (ICD-10-PCS; principal; 2022-06-08 07:30)
PROC: 0DB68ZX Excision of Stomach, Via Natural or Artificial Opening Endoscopic, Diagnostic (ICD-10-PCS; 2022-06-08 07:30)
DX: D64.9 Anemia, unspecified (principal); K62.7 Radiation proctitis; Z86.010 Personal history of colon polyps; K64.0 First degree hemorrhoids; M19.90 Unspecified osteoarthritis, unspecified site; K57.30 Diverticulosis of large intestine without perforation or abscess without bleeding; K22.2 Esophageal obstruction; K29.80 Duodenitis without bleeding; K44.9 Diaphragmatic hernia without obstruction or gangrene; K21.00 Gastro-esophageal reflux disease with esophagitis, without bleeding; Z88.5 Allergy status to narcotic agent
CPT/HCPCS: 36415; 87077; 99153; G0500; J0690; J2250; J3010; J7121

== ENCOUNTER 2024-06-27 17:46 | Emergency (ER) | payer MEDICARE, BC ==
[~2024-06-27] VITALS: Ht 180.3 cm; Wt 88.5 kg
[~2024-06-27 17:46] MED LIST changes: +MELATONIN1 MG PO
[2024-06-27 18:15] LABS: BILIRUBIN, URINE NEGATIVE (negative); BLOOD/HGB, URINE LARGE (Negative); KETONE, URINE NEGATIVE (Negative); LEUK ESTERASE, URINE NEGATIVE (negative); NITRITE, URINE NEGATIVE (negative)
[2024-06-27 18:22] LABS: BACTERIA, URINE NONE SEEN /hpf (negative); CASTS, URINE NONE SEEN \\lpf; COLLECTION TYPE, URINE CLEAN CATCH; CRYSTALS, URINE NONE SEEN (0-1+); EPITHELIAL CELLS, URINE NONE SEEN /lpf (0-1+); RED BLOOD CELLS, URINE >50 /hpf (0-5); REFLEX CULTURE, URINE No (No); WHITE BLOOD CELLS, URINE 0-1 /HPF (0-5)
[2024-06-27] MEDS ORDERED: FLOMAX0.4 MG PO (20:13)
[2024-06-27] MEDS ORDERED: LIDOCAINE 2% VISCOUS 6 ML SYR TOP ONE ×2 (20:15)
[2024-06-27 20:50] VITALS: BP 149/82
== END 2024-06-27 20:50 | disposition home or self-care (01) ==
LOC: ED 17:46
PROVIDERS: Emergency Medicine
DX: R31.9 Hematuria, unspecified (principal); N32.0 Bladder-neck obstruction; Z85.46 Personal history of malignant neoplasm of prostate; Z92.3 Personal history of irradiation; Z90.79 Acquired absence of other genital organ(s); Z88.5 Allergy status to narcotic agent; Z88.6 Allergy status to analgesic agent; Z79.899 Other long term (current) drug therapy
CPT/HCPCS: 51702; 51798; 81001; 99283

== ENCOUNTER 2024-06-28 14:03 | Emergency (ER) | payer MEDICARE, BC ==
[~2024-06-28] VITALS: Ht 180.3 cm; Wt 86.5 kg
[~2024-06-28 14:03] MED LIST changes: +FLOMAX0.4 MG PO
--- OUTSIDE RECORDS SUMMARY | 2024-06-28 14:09 | XMS ---
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 Ellis has no Care Guidelines for this patient. Radames VISIT COUNT (12 MO.) 2 [facility]. TOTAL 2 NOTE: Visits indicate total known visits. ED/C VISIT TRACKING (12 MO.) 06/28/2024 14:03 [facility] Emergency COMPLAINT: - CATHETER PROBLEM 06/27/2024 17:46 [facility] [place] TYPE: Emergency COMPLAINT: - URINARY ISSUE INPATIENT VISIT TRACKING (12 MO.) No inpatient visits to display in this time frame [email or web address]
[2024-06-28 19:00] VITALS: BP 120/77
== END 2024-06-28 19:00 | disposition home or self-care (01) ==
LOC: ED 14:03
DX: T83.098A Other mechanical complication of other urinary catheter, initial encounter (principal); M19.90 Unspecified osteoarthritis, unspecified site; Z85.46 Personal history of malignant neoplasm of prostate; Z90.79 Acquired absence of other genital organ(s); Z88.5 Allergy status to narcotic agent; Z88.6 Allergy status to analgesic agent; Z79.1 Long term (current) use of non-steroidal anti-inflammatories (NSAID); Z79.899 Other long term (current) drug therapy
CPT/HCPCS: 99283

== ENCOUNTER 2024-07-02 03:40 | Emergency (ER) | payer MEDICARE, BC ==
[~2024-07-02] VITALS: Ht 180.3 cm; Wt 88.0 kg
--- OUTSIDE RECORDS SUMMARY | 2024-07-02 03:43 | XMS ---
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 Ellis has no Care Guidelines for this patient. [facility] NOTE: Visits indicate total known visits. ED/C VISIT TRACKING (12 MO.) [facility] [place] [facility] COMPLAINT: - CATH FAILED 06/28/2024 14:03 [facility] [place] TYPE: Emergency COMPLAINT: - CATHETER PROBLEM 06/27/2024 17:46 [facility] [place] TYPE: Emergency COMPLAINT: - URINARY ISSUE DIAGNOSES: - Acquired absence of other genital organ(s) - Allergy status to analgesic agent - Allergy status to narcotic agent - Bladder-neck obstruction - Hematuria, unspecified - Other group home (current) drug therapy - Personal history of irradiation - Personal history of malignant neoplasm of prostate INPATIENT VISIT TRACKING (12 MO.) No inpatient visits to display in this time frame [email or web address]
[2024-07-02] MEDS ORDERED: LIDOCAINE 2% VISCOUS 6 ML SYR TOP ONE (04:15)
[2024-07-02 05:05] VITALS: BP 118/72
== END 2024-07-02 05:05 | disposition home or self-care (01) ==
LOC: ED 03:40
DX: T83.091A Other mechanical complication of indwelling urethral catheter, initial encounter (principal); R33.9 Retention of urine, unspecified; Z85.46 Personal history of malignant neoplasm of prostate; Z90.79 Acquired absence of other genital organ(s); Z88.5 Allergy status to narcotic agent; Z88.6 Allergy status to analgesic agent; Z79.899 Other long term (current) drug therapy
CPT/HCPCS: 51798; 99282

== ENCOUNTER 2024-08-30 06:50 | Day surgery (SDC) | payer MEDICARE, BC ==
[2024-08-07 15:33] VITALS: BP 121/79
[~2024-08-30] VITALS: Ht 180.3 cm; Wt 84.1 kg
[~2024-08-30 06:50] MED LIST changes: +LACTATED RINGER'S 1,000 ML IV SCH; +TAMSULOSIN HCL0.4 MG PO
[2024-08-30] MEDS ORDERED: IBLOOD GLUCOSE TEST STRIP 1 EA TEST VI PRN (07:00)
[2024-08-30] MEDS ORDERED: CEFAZOLIN SODIUM 2 GM/20 ML SYR IV SCH (07:00)
[2024-08-30] MEDS ORDERED: LIDOCAINE HCL 1% 5 ML SDV INJ ONE (07:00)
[2024-08-30 07:04] VITALS: BP 120/74
--- NOTE | 2024-08-30 07:24 | NUR ---
PT NOT AVAILABLE FOR VISIT. PROVIDED PRAYER.
--- NOTE | 2024-08-30 07:40 | NUR ---
VISITED DURING SPIRITUAL CARE ROUNDS. PT SUPPORTED BY IN ROOM. BOTH IN OVERALL GOOD SPIRITS; NO IMMEDIATE NEEDS. INDUSTRIAL CAFETERIA MANAGER PROVIDED SUPPORTIVE PRESENCE, HOSPITALITY, PRAYER, FACILITATED INTERACTION WITH THERAPY ANIMAL. PT AND EXPRESSED GRATITUDE.
[2024-08-30] MEDS ORDERED: ondansetron HCL 4 MG/2 ML VIAL IV PRN (07:45)
[2024-08-30] MEDS ORDERED: OXYCODONE/APAP 5/325 TAB PO PRN (07:45)
[2024-08-30] MEDS ORDERED: HYDROmorphone HCL 1 MG/ML SYR IV PRN (07:45)
[2024-08-30] MEDS ORDERED: propofoL 200 MG/20 ML VIAL ONE ×4 (08:38→09:04)
[2024-08-30] MEDS ORDERED: fentaNYL citrate 100 MCG/2 ML VIAL ONE (08:38)
[2024-08-30] MEDS ORDERED: ACETAMINOPHEN 1,000 MG/100 ML VIAL ONE (08:38)
[2024-08-30] MEDS ORDERED: LIDOCAINE HCL 2% 5 ML SDV ONE (08:38)
[2024-08-30] MEDS ORDERED: ondansetron HCL 4 MG/2 ML VIAL ONE (09:05)
[2024-08-30] MEDS ORDERED: DEXAMETHASONE SOD PHOS 4 MG/ML VIAL ONE (09:05)
--- NOTE | 2024-08-30 09:50 | NUR ---
08/30/24 0950 Mulu Trejo 0945-PATIENT ARRIVED TO PACU ON 6L MASK NONAROUSABLE RR EVEN. IVF INFUSING. SR HR 60'S. MELARA CATHETER IN PLACE ORANGE COLOR IN TUBING. 0950-PATIENT SNORING 6L MASK RR EVEN 100%
[2024-08-30] MEDS ORDERED: fentaNYL citrate 50 MCG/ML SDV ONE (10:08)
[2024-08-30 10:29] VITALS: BP 113/88
[2024-08-30] MEDS ORDERED: PHENAZOPYRIDINE HCL 100 MG TAB PO ONE (10:30)
[2024-08-30] MEDS ORDERED: TRAMADOL HCL 50 MG TAB PO PRN (10:30)
--- NOTE | 2024-08-30 10:33 | NUR ---
LE 1030: PT IS BACK TO DS FROM PACU. HE IS C/O BURNING PAIN. WATER AND CRACKERS ON BEDSIDE TABLE. CALL LIGHT WITHIN REACH. NO ADDITIONAL NEEDS AT THIS TIME.
[2024-08-30] MEDS ORDERED: NALOXONE HCL 0.4 MG SYR IV PRN (11:00)
[2024-08-30] MEDS ORDERED: fentaNYL citrate 50 MCG/ML SDV IV PRN (11:00)
--- NOTE | 2024-08-30 11:02 | NUR ---
1102-PATIENT HAS EYES CLOSED WINCING REPORTING PAIN "8" IVF INFUSING. AT BEDSIDE. RA 98% RR EVEN. WILL MEDICATE PER EMAR. CALL LIGHT IN REACH. PATIENT HAS EATEN CRACKERS.
[2024-08-30 11:03] VITALS: BP 130/67
[2024-08-30 11:43] VITALS: BP 123/75
--- NOTE | 2024-08-30 11:44 | NUR ---
LE 1142: PT REPORTS IMPROVEMENT IN HIS PAIN, THAT IS NOW COMING IN SURGES RATHER THAN BEING CONSTANT. IS AT THE BEDSIDE. CALL LIGHT WITHIN REACH. HE IS TOLERATING WATER, PUDDING, AND CRACKERS. PT HAS MET ALL DC CRITERIA. HE WOULD LIKE TO GO HOME. HE IS EDUCATED HOW TO BEST DRESS HIMSELF AND TO OPEN CURTAIN WHEN READY.
--- NOTE | 2024-08-30 12:58 | NUR ---
LE 1200: PT AND ARE GIVEN WRITTEN AND VERBAL DC INSTRUCTIONS. THEY BOTH VERBALIZE UNDERSTANDING, QUESTIONS ARE ASKED AND ANSWERED. PT IS ASSISTED WITH SITUATING HIS MELARA BAG. MELARA IS EMPTIED OF 600MLS OF ORANGE TINTED URINE (DUE TO PYRIDIUM). LE 1205: PT IS TAKEN TO PERSONAL VEHICLE VIA WC BY RK [place].
[2024-09-02 19:48] LABS: CALCULI MASS 98 mg (())
--- NOTE | 2024-09-04 09:08 | PATH ---
[facility] [address] [facility] [place], [place] [address] Signed SPECIMEN(S): A BLADDER NECK CONTRACTURE SPECIMEN SOURCE: A. BLADDER NECK CONTRACTURE CLINICAL HISTORY: Bladder neck contracture FINAL PATHOLOGIC DIAGNOSIS: Bladder neck contracture: - Urothelium with edema, congestion, chronic inflammation and reactive changes. - underlying tissue with fibrosis and calcifications. - Unremarkable mascularis properia. - Negative for malignancy. NA MICROSCOPIC EXAMINATION: Histologic sections of all submitted blocks are examined by light microscopy. These findings, together with the gross examination, support the pathologic diagnosis. Immunohistochemical stains are performed on block A2. Stain for CK7 highlights urothelium and is negative for infiltrative epithelial components. Melan-A stain is negative. Control slides stained appropriately. NA GROSS DESCRIPTION: The specimen, labeled and designated "Jo, bladder neck contracture," is received in formalin and consists of multiple fragments of pink-wright to yellow soft tissue (2.8 x 2.8 x 0.4 cm in aggregate). The specimen is submitted entirely in cassette (A1-A2). VB (under the direct supervision of a pathologist) The Gross Description was prepared using a voice recognition system. The report was reviewed for accuracy; however, sound-alike word errors, addition and/or deletions may occur. If there is any question about this report, please contact Client Services. ADDITIONAL NOTES: Immunohistochemical and/or in situ hybridization studies if performed in this case included appropriate positive controls that reacted as expected. This test was developed and its performance PATIENT NAME: ALVARO FREDERICK PATHOLOGY DATE OF : 48 REPORT #: [id number] PHYSICIAN: YRN VALDOVINOS PCP: CAROLIN VEGA MD REPORT IS CONFIDENTIAL AND NOT TO BE RELEASED WITHOUT AUTHORIZATION [facility] [address] [place], [place] [address] Signed characteristics determined by [employer]. It has not been cleared or approved by the U.S. Food and Drug Administration. The FDA has determined that such clearance or approval is not necessary. This test is used for clinical purposes. It should not be regarded as investigational or for research. [employer] is certified under the Clinical Laboratory Improvement Amendments of 1988 (CLIA) as qualified to perform high complexity clinical laboratory testing. PERFORMING LABORATORY: Technical component was performed by [facility], [address] [place] [address] (CLIA# [id number]). Professional interpretation was performed by [facility], [address] [place] [address] (CLIA#: [id number]). Diagnostician: Heather Vasquez MD Pathologist Electronically Signed 09/04/2024 Copies: ~ PATIENT NAME: ALVARO FREDERICK PATHOLOGY DATE OF : 48 REPORT #: [id number] PHYSICIAN: YRN PATHOLOGY PCP: CAROLIN VEGA MD REPORT IS CONFIDENTIAL AND NOT TO BE RELEASED WITHOUT AUTHORIZATION
== END 2024-08-30 12:50 | disposition home or self-care (01) ==
LOC: OPS 06:50 → DS 06:50 → OPS 08:45
PROVIDERS: ATTEND Urology
PROC: 0TCB8ZZ Extirpation of Matter from Bladder, Via Natural or Artificial Opening Endoscopic (ICD-10-PCS; 2024-08-30)
PROC: 0TBC8ZZ Excision of Bladder Neck, Via Natural or Artificial Opening Endoscopic (ICD-10-PCS; principal; 2024-08-30 08:45)
DX: N32.0 Bladder-neck obstruction (principal); N21.0 Calculus in bladder; R33.9 Retention of urine, unspecified; E78.5 Hyperlipidemia, unspecified; J45.909 Unspecified asthma, uncomplicated; Z90.79 Acquired absence of other genital organ(s); Z79.899 Other long term (current) drug therapy; Z88.5 Allergy status to narcotic agent; Z88.8 Allergy status to other drugs, medicaments and biological substances
CPT/HCPCS: 00910; 82365; 88307; 88341; 88342; J0131; J0690; J1100; J2003; J2405; J2704; J3010; J7121

== ENCOUNTER 2024-11-19 22:56 | Emergency (ER) | payer MEDICARE, BC ==
[~2024-11-19] VITALS: Ht 180.3 cm; Wt 86.3 kg
[~2024-11-19 22:56] MED LIST changes: -LACTATED RINGER'S 1,000 ML IV SCH; +MACROBID 100 M100 MG PO
--- OUTSIDE RECORDS SUMMARY | 2024-11-19 23:03 | XMS ---
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 Ellis has no Care Guidelines for this patient. Radames VISIT COUNT (12 MO.) [address] ([facility]) TOTAL 10 NOTE: Visits indicate total known visits. ED/UCC VISIT TRACKING (12 MO.) 11/19/2024 22:57 [facility] [place] TYPE: Emergency COMPLAINT: - BACK/ABDOMINAL PAIN 10/21/2024 11:47 [facility] [place] [facility] [place] ([employer]) TYPE: Emergency DIAGNOSES: - Presence of other specified devices - Unspecified complication of genitourinary prosthetic device, implant and graft, initial encounter 10/16/2024 19:00 [facility] [place] [facility] [place] ([employer]) TYPE: Emergency DIAGNOSES: - Unspecified complication of genitourinary prosthetic device, implant and graft, initial encounter 09/22/2024 22:44 [facility] [place] [facility] [place] ([employer]) TYPE: Emergency DIAGNOSES: - Hematuria, unspecified - Unspecified complication of genitourinary prosthetic device, implant and graft, initial encounter 09/22/2024 06:21 [facility] [place] ([facility]) TYPE: Emergency DIAGNOSES: - Unspecified complication of genitourinary prosthetic device, implant and graft, initial encounter 09/14/2024 16:51 [facility] [place] TYPE: Emergency COMPLAINT: - UNABLE TO URINATE DIAGNOSES: - Allergy status to analgesic agent - Allergy status to narcotic agent - Other fdc (current) drug therapy - Retention of urine, unspecified 09/10/2024 06:45 [facility] TYPE: Emergency COMPLAINT: - URINE PROBLEM DIAGNOSES: - Allergy status to analgesic agent - Allergy status to narcotic agent - Obstructive and reflux uropathy, unspecified - Other keno terminal operator (current) drug therapy - Retention of urine, unspecified 07/02/2024 03:40 [facility] TYPE: Emergency COMPLAINT: - CATH FAILED DIAGNOSES: - Acquired absence of other genital organ(s) - Allergy status to analgesic agent - Allergy status to narcotic agent - Other fdc (current) drug therapy - Other mechanical complication of indwelling urethral catheter, initial encounter - Other mechanical complication of other urinary catheter, initial encounter - Personal history of malignant neoplasm of prostate - Retention of urine, unspecified 06/28/2024 14:03 [facility] [place] TYPE: Emergency COMPLAINT: - CATHETER PROBLEM DIAGNOSES: - Acquired absence of other genital organ(s) - Allergy status to analgesic agent - Allergy status to narcotic agent - [facility] (current) use of non-steroidal anti-inflammatories (NSAID) - Other keno terminal operator (current) drug therapy - Other mechanical complication of other urinary catheter, initial encounter - Personal history of malignant neoplasm of prostate - Unspecified osteoarthritis, unspecified site 06/27/2024 17:46 [facility] TYPE: Emergency COMPLAINT: - URINARY ISSUE DIAGNOSES: - Acquired absence of other genital organ(s) - Allergy status to analgesic agent - Allergy status to narcotic agent - Bladder-neck obstruction - Hematuria, unspecified - Other keno terminal operator (current) drug therapy - Personal history of irradiation - Personal history of malignant neoplasm of prostate INPATIENT VISIT TRACKING (12 MO.) No inpatient visits to display in this time frame [id number]
[2024-11-19] MEDS ORDERED: LEVOFLOXACIN500 MG PO (23:32)
[2024-11-19 23:43] LABS: BASOPHILS 0.7 % (0.2-1.2); EOSINOPHILS 2.4 % (0.8-7.0); LYMPHOCYTES 7.1 % (21.8-53.1); MCH 32.8 PG (25.7-32.2); MCHC 34.0 g/dL (32.3-36.5); MCV 96.4 fL (79.0-92.2); MONOCYTES 1.7 % (5.3-12.2); NEUTROPHILS 87.7 % (34.0-67.9); RBC 3.90 M/uL (4.63-6.08)
[2024-11-19] MEDS ORDERED: LIDOCAINE 2% VISCOUS 6 ML SYR TOP ONE (23:45)
[2024-11-19 23:47] LABS: INR 1.13 (0.80-1.30); PROTIME 13.8 Sec (11.2-14.2)
[2024-11-19 23:56] LABS: LACTIC ACID, BLOOD 0.9 mmol/L (0.4-2.0)
[2024-11-20] LABS: ALT (SGPT) 25.0 U/L (14-59); AST (SGOT) 17.0 U/L (15-37); GLOMERULAR FILTRATION RATE,EST 91.0 mL/min (>60); PROTEIN, TOTAL 7.9 g/dL (6.4-8.2); UREA NITROGEN 21.0 mg/dL (7-18)
[2024-11-20 00:20] LABS: BLOOD/HGB, URINE MODERATE (Negative); KETONE, URINE SMALL (Negative); LEUK ESTERASE, URINE SMALL (negative); NITRITE, URINE POSITIVE (negative)
[2024-11-20] MEDS ORDERED: fentaNYL citrate 100 MCG/2 ML VIAL IV ONE (00:30)
[2024-11-20] MEDS ORDERED: ACETAMINOPHEN 500 MG TAB PO ONE (00:30)
[2024-11-20 00:37] LABS: BACTERIA, URINE RARE /hpf (negative); CASTS, URINE NONE SEEN \\lpf; CRYSTALS, URINE NONE SEEN (0-1+); EPITHELIAL CELLS, URINE SQUAMOUS 1+ /lpf (0-1+); REFLEX CULTURE, URINE Yes (No)
[2024-11-20] MEDS ORDERED: TRAMADOL HCL50 MG PO (00:55)
[2024-11-20] MEDS ORDERED: PYRIDIUM200 MG PO (00:55)
[2024-11-20] MEDS ORDERED: CEFDINIR300 MG PO (00:55)
[2024-11-20] MEDS ORDERED: ONDANSETRON ODT8 MG PO (00:56)
[2024-11-20] MEDS ORDERED: TRAMADOL HCL 50 MG HOME.PACK PO ONE (01:15)
[2024-11-20] MEDS ORDERED: ONDANSETRON 4 MG HOME.PACK SL ONE (01:15)
[2024-11-20] MEDS ORDERED: CEFDINIR 300 MG HOME.PACK PO ONE (01:15)
[2024-11-20 01:30] VITALS: BP 102/54
== END 2024-11-20 01:28 | disposition home or self-care (01) ==
LOC: ED 22:56
PROVIDERS: Family Medicine
DX: N39.0 Urinary tract infection, site not specified (principal); Z88.5 Allergy status to narcotic agent; Z88.8 Allergy status to other drugs, medicaments and biological substances; Z79.899 Other long term (current) drug therapy
CPT/HCPCS: 36415; 51702; 51798; 80053; 81001; 83605; 83880; 85025; 85610; 87040; 87077; 87088; 87186; 96365; 96375; 99284-25; A4311; A9270; J0696; J2405

== ENCOUNTER 2024-11-26 13:03 | Emergency (ER) | payer MEDICARE, BC ==
[~2024-11-26] VITALS: Ht 180.3 cm; Wt 85.0 kg
[~2024-11-26 13:03] MED LIST changes: +LEVOFLOXACIN500 MG PO; +ONDANSETRON ODT8 MG PO; +PYRIDIUM200 MG PO; +TRAMADOL HCL50 MG PO
--- OUTSIDE RECORDS SUMMARY | 2024-11-26 13:10 | XMS ---
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 Ellis has no Care Guidelines for this patient. Radames VISIT COUNT (12 MO.) [address] ([facility]) TOTAL 11 NOTE: Visits indicate total known visits. ED/UCC VISIT TRACKING (12 MO.) [facility] [place] [facility] COMPLAINT: - WEAKNESS 11/19/2024 22:57 [facility] [place] TYPE: Emergency COMPLAINT: - BACK/ABDOMINAL PAIN DIAGNOSES: - Allergy status to narcotic agent - Allergy status to other drugs, medicaments and biological substances - Hormone replacement therapy - Other terminal computer operator (current) drug therapy - Urinary tract infection, site not specified - Weakness 10/[facility]24 [facility] [place] [facility]: Emergency DIAGNOSES: - Presence of other specified devices - Unspecified complication of genitourinary prosthetic device, implant and graft, initial encounter 10/16/2024 19:00 [facility] [place] ([facility]) TYPE: Emergency DIAGNOSES: - Unspecified complication of genitourinary prosthetic device, implant and graft, initial encounter 09/22/2024 22:44 [facility] [place] ([facility]) TYPE: Emergency DIAGNOSES: - Hematuria, unspecified - Unspecified complication of genitourinary prosthetic device, implant and graft, initial encounter 09/22/2024 06:21 [facility] [place] ([facility] TYPE: Emergency DIAGNOSES: - Unspecified complication of genitourinary prosthetic device, implant and graft, initial encounter 09/14/2024 16:[address] [facility] [place] TYPE: Emergency COMPLAINT: - UNABLE TO URINATE DIAGNOSES: - Allergy status to analgesic agent - Allergy status to narcotic agent - Other ch[facility] (current) drug therapy - Retention of urine, unspecified 09/10/2024 06:[address] [facility] [place] TYPE: Emergency COMPLAINT: - URINE PROBLEM DIAGNOSES: - Allergy status to analgesic agent - Allergy status to narcotic agent - Obstructive and reflux uropathy, unspecified - Other terminal computer operator (current) drug therapy - Retention of urine, unspecified 07/02/2024 03:40 [facility] [place] TYPE: Emergency COMPLAINT: - CATH FAILED DIAGNOSES: - Acquired absence of other genital organ(s) - Allergy status to analgesic agent - Allergy status to narcotic agent - Other ch[facility] (current) drug therapy - Other mechanical complication [...] - Allergy status to narcotic agent - assisted (current) use of non-steroidal anti-inflammatories (NSAID) - Other terminal computer operator (current) drug therapy - Other mechanical complication of other urinary catheter, initial encounter - Personal history of malignant neoplasm of prostate - Unspecified osteoarthritis, unspecified site 06/27/2024 17:46 [facility] TYPE: Emergency COMPLAINT: - URINARY ISSUE DIAGNOSES: - Acquired absence of other genital organ(s) - Allergy status to analgesic agent - Allergy status to narcotic agent - Bladder-neck obstruction - Hematuria, unspecified - Other terminal computer operator (current) drug therapy - Personal history of irradiation - Personal history of malignant neoplasm of prostate INPATIENT VISIT TRACKING (12 MO.) No inpatient visits to display in this time frame [id number]
[2024-11-26] MEDS ORDERED: SODIUM CHLORIDE 0.9% 2,000 ML IV PRN (14:00)
[2024-11-26] MEDS ORDERED: TRAMADOL HCL 50 MG TAB PO ONE (14:00)
[2024-11-26 14:44] LABS: BASOPHILS 0.4 % (0.2-1.2); EOSINOPHILS 1.6 % (0.8-7.0); LYMPHOCYTES 5.7 % (21.8-53.1); MCH 30.7 PG (25.7-32.2); MCHC 33.5 g/dL (32.3-36.5); MCV 91.7 fL (79.0-92.2); MONOCYTES 12.1 % (5.3-12.2); NEUTROPHILS 79.4 % (34.0-67.9); RBC 3.74 M/uL (4.63-6.08)
[2024-11-26 14:53] LABS: BLOOD/HGB, URINE LARGE (Negative); KETONE, URINE SMALL (Negative); LEUK ESTERASE, URINE MODERATE (negative); NITRITE, URINE POSITIVE (negative)
[2024-11-26 15:01] LABS: ALT (SGPT) 19.0 U/L (14-59); AST (SGOT) 14.0 U/L (15-37); GLOMERULAR FILTRATION RATE,EST 94.0 mL/min (>60); PROTEIN, TOTAL 7.0 g/dL (6.4-8.2); UREA NITROGEN 12.0 mg/dL (7-18)
[2024-11-26 15:03] LABS: INR 1.11 (0.80-1.30); PROTIME 13.6 Sec (11.2-14.2)
[2024-11-26 15:04] LABS: BACTERIA, URINE RARE /hpf (negative); CASTS, URINE NONE SEEN \\lpf; CRYSTALS, URINE NONE SEEN (0-1+); EPITHELIAL CELLS, URINE NONE SEEN /lpf (0-1+); REFLEX CULTURE, URINE Yes (No)
[2024-11-26 15:05] LABS: LACTIC ACID, BLOOD 0.5 mmol/L (0.4-2.0)
[2024-11-26] MEDS ORDERED: LIDOCAINE 2% VISCOUS 6 ML SYR TOP ONE (17:15)
[2024-11-26] MEDS ORDERED: LACTATED RINGER'S 1,000 ML IV SCH (21:00)
[2024-11-26 21:35] VITALS: BP 130/74
== END 2024-11-26 21:35 | disposition short-term general hospital (02) ==
LOC: ED 13:03
PROVIDERS: Emergency Medicine
DX: N30.80 Other cystitis without hematuria (principal); L02.211 Cutaneous abscess of abdominal wall; R10.2 Pelvic and perineal pain; Z98.890 Other specified postprocedural states; Z87.438 Personal history of other diseases of male genital organs; Z88.5 Allergy status to narcotic agent; Z79.899 Other long term (current) drug therapy
CPT/HCPCS: 36415; 51702; 74177; 80053; 81001; 83605; 85025; 85610; 85730; 87040; 87088; 87186; 96365; 99284-25; A4311; J0696; J7121; Q9967

== ENCOUNTER 2024-12-13 17:19 | Emergency (ER) | payer MEDICARE, BC ==
[~2024-12-13] VITALS: Ht 180.3 cm; Wt 85.0 kg
--- OUTSIDE RECORDS SUMMARY | 2024-12-13 17:26 | XMS ---
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 Ellis has no Care Guidelines for this patient. [facility] VISIT COUNT (12 MO.) [address] ([facility]) TOTAL 12 NOTE: Visits indicate total known visits. ED/UCC VISIT TRACKING (12 MO.) 12/13/2024 17:20 [facility] [place] TYPE: Emergency COMPLAINT: - RT SIDE GROIN PAIN 11/26/2024 13:03 [facility] [place] TYPE: Emergency COMPLAINT: - WEAKNESS DIAGNOSES: - Allergy status to narcotic agent - Cutaneous abscess of abdominal wall - Dysuria - Other cystitis without hematuria - Other custodial (current) drug therapy - Other specified postprocedural states - Personal history of other diseases of male genital organs 11/19/2024 22:57 [facility] TYPE: Emergency COMPLAINT: - BACK/ABDOMINAL PAIN DIAGNOSES: - Allergy status to narcotic agent - Allergy status to other drugs, medicaments and biological substances - Hormone replacement therapy - Other long term care phlebotomist (current) drug therapy - Urinary tract infection, site not specified - Weakness 10/21/2024 11:47 [facility] [place] ([facility]) TYPE: Emergency DIAGNOSES: - Presence of other specified devices - Unspecified complication of genitourinary prosthetic device, implant and graft, initial encounter 10/16/2024 19:00 [facility] [place] ([employer]) TYPE: Emergency DIAGNOSES: - Unspecified complication of genitourinary prosthetic device, implant and graft, initial encounter [facility] TYPE: Emergency DIAGNOSES: - Hematuria, unspecified - Unspecified complication of genitourinary prosthetic device, implant and graft, initial encounter 09/22/2024 06:21 [facility] ([facility]) TYPE: Emergency DIAGNOSES: - Unspecified complication of genitourinary prosthetic device, implant and graft, initial encounter 09/14/2024 16:51 [facility] [place] TYPE: Emergency COMPLAINT: - UNABLE TO URINATE DIAGNOSES: - Allergy status to analgesic agent - Allergy status to narcotic agent - Other long term care phlebotomist (current) drug therapy - Retention of urine, unspecified 09/10/2024 06:45 [facility] [place] TYPE: Emergency COMPLAINT: - URINE PROBLEM DIAGNOSES: - Allergy status to analgesic agent - Allergy status to narcotic agent - Obstructive and reflux uropathy, unspecified - Other custodial (current) drug therapy - Retention of urine, unspecified 07/02/2024 03:40 [facility] [place] TYPE: Emergency COMPLAINT: - CATH FAILED DIAGNOSES: - Acquired absence of other genital organ(s) - Allergy status to analgesic agent - Allergy status to narcotic agent - Other long term care phlebotomist (current) drug therapy - Other mechanical complication [...] - Allergy status to narcotic agent - rn long term care (current) use of non-steroidal anti-inflammatories (NSAID) - Other long term care phlebotomist (current) drug therapy - Other mechanical complication of other urinary catheter, initial encounter - Personal history of malignant neoplasm of prostate - Unspecified osteoarthritis, unspecified site 06/27/2024 17:[address] [facility] TYPE: Emergency COMPLAINT: - URINARY ISSUE DIAGNOSES: - Acquired absence of other genital organ(s) - Allergy status to analgesic agent - Allergy status to narcotic agent - Bladder-neck obstruction - Hematuria, unspecified - Other long term care phlebotomist (current) drug therapy - Personal history of irradiation - Personal history of malignant neoplasm of prostate INPATIENT VISIT TRACKING (12 MO.) 11/27/2024 10:[facility] TYPE: General Medicine COMPLAINT: - Post surgical UTI DIAGNOSES: - Bacteremia - Other cystitis without hematuria - Other cystitis without hematuria - Sepsis, unspecified organism [email or web address]
[2024-12-13 18:33] VITALS: BP 115/65
== END 2024-12-13 18:33 | disposition home or self-care (01) ==
LOC: ED 17:19
DX: K40.90 Unilateral inguinal hernia, without obstruction or gangrene, not specified as recurrent (principal); Z88.5 Allergy status to narcotic agent; Z79.899 Other long term (current) drug therapy
CPT/HCPCS: 99283

== ENCOUNTER 2025-03-28 10:51 | Emergency (ER) | payer MEDICARE, BC ==
[~2025-03-28] VITALS: Ht 180.3 cm; Wt 83.9 kg
--- OUTSIDE RECORDS SUMMARY | ~2025-03-28 | XMS | Continuity of Care Document ---
Demographics + + + | Address | [address] | | | [place] [id number] | + + + | Preferred Language | Unknown | + + + | Marital Status | Unknown | + + + | Anabaptism Affiliation | Unknown | + + + | Race | White | + + + | Ethnic Group | Not or | + + + Author + + + | Author | [facility] | + + + | Organization | [facility] | + + + | Address | [address] | | | [place] [address] | + + + | Phone | | + + + Care Team Providers + + + + | Care Numerical Control Nesting Operator Name | Role | Phone | + + + + Unavailable | Unavailable | + + + + Allergies and Intolerances + + + + + + | date | description | facility | reaction | severity | + + + + + + | 2024-11-27 | | [facility] | [facility] | (no severity) | | 10:00 | 1545^MORPHINE^H | | | | | | IC_[facility]-Epic | | | | + + + + + + | 2024-11-27 | | [facility] | [facility] | (no severity) | | 10:00 | 1558^OXYCODONE^ | | | | | | HIC_[facility]-Epic | | | | + + + + + + | 2024-12-09 | | [facility] | [facility] | (no severity) | | 10:00 | 2794^CLINDAMYCI | | | | | | N^HIC_[facility]-Epic | | | | | | | | | | + + + + + + | 2024-12-09 | | [facility] | [facility] | (no severity) | | 10:00 | 35654^METROZOLE | | | | | | ^MEDNAMEID_[facility] | | | | | | -Epic | | | | + + + + + + | 2024-12-09 | | [facility] | [facility] | (no severity) | | 10:00 | 9468^PIPERACILL | | | | | | IN-TAZOBACTAM^M | | | | | | EDNAMEID_[facility]-E | | | | | | pic | | | | + + + + + + Encounters No information. Functional Status No information. Immunizations No information. Medications No information. Problems + + + + | date | description | facility | + + + + | 2024-12-29 22:28:43 | Osteomyelitis, unspecified | [facility] | | | ([facility] V24, [facility] V28) | | | | | | + + + + Procedures No information. Results/Labs No information. Social History +--------+ + + | date | description | facility | +--------+ + + Vital Signs No information."
--- OUTSIDE RECORDS SUMMARY | 2025-03-28 10:58 | XMS ---
PreManage Notification: ALVARO FREDERICK Security Transition Assistant Events No recent Security Events currently on file CRITERIA MET - 6 ED Visits in 6 Months CARE PROVIDERS OSMAN EASTON Nurse Practitioner Current PHONE: Unknown Ellis has no Care Guidelines for this patient. E.D. VISIT COUNT (12 MO.) 9 [facility] [place] [facility] 4 [facility] ([facility]) [address] [facility] TOTAL 15 NOTE: Visits indicate total known visits. ED/UCC VISIT TRACKING (12 MO.) 03/28/2025 10:51 [facility] TYPE: Emergency COMPLAINT: - SKIN PROBLEM 01/16/2025 21:55 [facility] TYPE: Emergency COMPLAINT: - catheter problem DIAGNOSES: - Displacement of indwelling urethral catheter, initial encounter - catheter problem - Dislodged Catheter 12/18/2024 22:27 [facility] TYPE: Emergency COMPLAINT: - Catheter came out DIAGNOSES: - Displacement of indwelling urethral catheter, initial encounter - Catheter came out - Catheter Issue 12/13/2024 17:[address] [facility] [place] TYPE: Emergency COMPLAINT: - RT SIDE GROIN PAIN DIAGNOSES: - Allergy status to narcotic agent - Other cathodic protection technician (current) drug therapy - Right lower quadrant pain - Unilateral inguinal hernia, without obstruction or gangrene, not specified as recurrent 11/26/2024 13:[address] [facility] [place] TYPE: Emergency COMPLAINT: - WEAKNESS DIAGNOSES: - Allergy status to narcotic agent - Cutaneous abscess of abdominal wall - Dysuria - Other cystitis without hematuria - Other cathodic protection technician (current) drug therapy - Other specified postprocedural states - Pelvic and perineal pain - Personal history of other diseases of male genital organs 11/19/2024 22:[address] [facility] [place] TYPE: Emergency COMPLAINT: - BACK/ABDOMINAL PAIN DIAGNOSES: - Allergy status to narcotic agent - Allergy status to other drugs, medicaments and biological substances - Hormone replacement therapy - Other skilled nursing (current) drug therapy - Urinary tract infection, site not specified - Weakness 10/21/2024 11:47 [facility] [facility] [place] ([employer]) TYPE: Emergency DIAGNOSES: - Presence of other specified devices - Unspecified complication of genitourinary prosthetic device, implant and graft, initial encounter 10/16/2024 19:00 [facility] [place] ([employer]) TYPE: Emergency DIAGNOSES: - Unspecified complication of genitourinary prosthetic device, implant and graft, initial encounter 09/22/2024 22:44 [facility] [place] ([employer]) TYPE: Emergency DIAGNOSES: - Hematuria, unspecified - Unspecified complication of genitourinary prosthetic device, implant and graft, initial encounter 09/22/2024 06:21 [facility] [place] ([employer] TYPE: Emergency DIAGNOSES: - Unspecified complication of genitourinary prosthetic device, implant and graft, initial encounter 09/14/2024 16:51 [facility] [place] TYPE: Emergency COMPLAINT: - UNABLE TO URINATE DIAGNOSES: - Allergy status to analgesic agent - Allergy status to narcotic agent - Other skilled nursing (current) drug therapy - Retention of urine, unspecified 09/10/2024 06:45 [facility] [place] TYPE: Emergency COMPLAINT: - URINE PROBLEM DIAGNOSES: - Allergy status to analgesic agent - Allergy status to narcotic agent - Obstructive and reflux uropathy, unspecified - Other cathodic protection technician (current) drug therapy - Retention of urine, unspecified 07/02/2024 03:40 [facility] [place] TYPE: Emergency COMPLAINT: - CATH FAILED DIAGNOSES: - Acquired absence of other genital organ(s) - Allergy status to analgesic agent - Allergy status to narcotic agent - Other cathodic protection technician (current) drug therapy - Other mechanical complication [...] - Allergy status to narcotic agent - pv installer tech (current) use of non-steroidal anti-inflammatories (NSAID) - Other skilled nursing (current) drug therapy - Other mechanical complication [...] Bladder-neck obstruction - Hematuria, unspecified - Other skilled nursing (current) drug therapy - Personal history of irradiation - Personal history of malignant neoplasm of prostate INPATIENT VISIT TRACKING (12 MO.) 11/27/2024 10:28 [facility] TYPE: General Medicine COMPLAINT: - Post surgical UTI DIAGNOSES: - Bacteremia - Other cystitis without hematuria - Other cystitis without hematuria - Sepsis, unspecified organism [email or web address]
[2025-03-28 12:19] LABS: BASOPHILS 1.3 % (0.2-1.2); EOSINOPHILS 6.5 % (0.8-7.0); LYMPHOCYTES 16.0 % (21.8-53.1); MCH 30.7 PG (25.7-32.2); MCHC 33.1 g/dL (32.3-36.5); MCV 92.6 fL (79.0-92.2); MONOCYTES 13.5 % (5.3-12.2); NEUTROPHILS 62.3 % (34.0-67.9); RBC 3.26 M/uL (4.63-6.08)
[2025-03-28 12:35] LABS: BLOOD/HGB, URINE LARGE (Negative); KETONE, URINE NEGATIVE (Negative); LEUK ESTERASE, URINE LARGE (negative); NITRITE, URINE NEGATIVE (negative)
[2025-03-28 12:48] LABS: ALT (SGPT) 12.0 U/L (14-59); AST (SGOT) 15.0 U/L (15-37); GLOMERULAR FILTRATION RATE,EST 94.0 mL/min (>60); PROTEIN, TOTAL 7.1 g/dL (6.4-8.2); UREA NITROGEN 17.0 mg/dL (7-18)
[2025-03-28 12:58] LABS: BACTERIA, URINE RARE /hpf (negative); CASTS, URINE NONE SEEN \\lpf; CRYSTALS, URINE NONE SEEN (0-1+); EPITHELIAL CELLS, URINE SQUAMOUS 1+ /lpf (0-1+); REFLEX CULTURE, URINE Yes (No)
[2025-03-28 20:15] VITALS: BP 122/69
== END 2025-03-28 21:40 | disposition short-term general hospital (02) ==
LOC: ED 10:51
PROVIDERS: Emergency Medicine
DX: M86.9 Osteomyelitis, unspecified (principal); N32.2 Vesical fistula, not elsewhere classified; L02.214 Cutaneous abscess of groin; Z88.5 Allergy status to narcotic agent; Z88.8 Allergy status to other drugs, medicaments and biological substances; Z79.899 Other long term (current) drug therapy
CPT/HCPCS: 36415; 74177; 80053; 81001; 85025; 87088; 99284-25